=== PATIENT | male | born 1955 | race African-American/Black ===

== ENCOUNTER 2019-06-14 02:59 | Emergency (ER) | payer SELFPAY ==
[~2019-06-14] VITALS: Ht 180.3 cm; Wt 87.0 kg
[2019-06-14] MEDS ORDERED: MORPHINE SULFATE 4 MG/ML CPJ (NOT FOR IM USE) IV STA (03:47)
[2019-06-14] MEDS ORDERED: ONDANSETRON HCL 4MG/2ML INJ IV STA (03:47)
[2019-06-14 04:23] LABS: BASOPHILS % 0.5 % (0.0-2.0); EOSINOPHILS % 0.8 % (0.0-5.0); HEMOGLOBIN. 14.1 g/dL (14.0-18.0); LYMPHOCYTES % 17.9 % (20.0-50.0); MEAN CORPUSCULAR HEMOGLOBIN 28.6 pg (28.0-32.0); MEAN PLATELET VOLUME 8.4 fl (7.4-10.4); MONOCYTES % 6.1 % (2.0-8.0); NEUTROPHILS % 74.7 % (40.0-76.0); PLATELET 134 x1000/uL (130-400); RED BLOOD CELL COUNT 4.94 mill/uL (4.7-6.1); RED CELL DISTRIBUTION WIDTH 14.2 % (11.6-14.6)
[2019-06-14 04:32] LABS: CHLORIDE 109 mEq/L (98-107)
[2019-06-14] MEDS ORDERED: KETOROLAC 15MG/ML VIAL IV ONE (04:45)
[2019-06-14 05:40] LABS: CLARITY URINE CLEAR (CLEAR); COLOR URINE YELLOW (YELLOW); KETONES URINE NEGATIVE (NEGATIVE); LEUKOCYTE ESTERASE URINE TRACE (NEGATIVE); NITRITE URINE NEGATIVE (NEGATIVE); OCCULT BLOOD URINE 3+ (NEGATIVE); PH URINE 6.5 (4.5-8.0); PROTEIN URINE NEGATIVE (NEGATIVE); SPECIFIC GRAVITY URINE 1.014 (1.005-1.030); UROBILINOGEN URINE 0.2 E.U./dL (0.2-1.0)
[2019-06-14] MEDS ORDERED: TAMSULOSIN HCL 0.4MG SR CAPSULE PO ONE (06:00)
[2019-06-14 06:20] VITALS: BP 108/71
== END 2019-06-14 07:01 | disposition home or self-care (01) ==
LOC: ER 02:59
DX: N20.1 Calculus of ureter (principal)
CPT/HCPCS: 36415; 74176; 80053; 81003; 83690; 85025; 96374; 96375; 99284; J1885; J2270; J2405